=== PATIENT | male | born 1975 | race Caucasian/White ===

== ENCOUNTER 2018-04-15 12:24 | Emergency (ER) | payer SELFPAY ==
[2018-04-15 14:12] LABS: ADD MAN DIFF? NO; BASOPHILS % 0.5 % (0.0-2.0); EOSINOPHILS # 0.1 10^3/ul (0.0-0.5); EOSINOPHILS % 1.5 % (0.0-7.0); HEMATOCRIT 48.2 % (42.0-52.0); HEMOGLOBIN 16.6 g/dl (14.0-18.0); LYMPHOCYTES # 2.2 10^3/ul (0.8-2.9); LYMPHOCYTES % 36.3 % (15.0-51.0); MEAN CORPUSCULAR HGB CONC 34.4 g/dl (32.0-37.0); MEAN CORPUSCULAR VOLUME 90.1 fl (82.0-101.0); MEAN PLATELET VOLUME 9.8 fl (7.4-10.4); MONOCYTE # 0.5 10^3/ul (0.3-0.9); MONOCYTES % 7.6 % (0.0-11.0); NEUTROPHIL # 3.3 10^3/ul (1.6-7.5); NEUTROPHILS % 53.9 % (39.0-77.0); PLATELET COUNT 214 10^3/UL (140-415); RED BLOOD COUNT 5.35 10^6/ul (4.70-6.10)
[2018-04-15 14:21] LABS: ADD UMIC NO; UR ASCORBIC ACID NEGATIVE (NEGATIVE); UR BILIRUBIN (Dip) NEGATIVE (NEGATIVE); UR BLOOD (Dip) NEGATIVE (NEGATIVE); UR CLARITY CLEAR (CLEAR); UR COLOR STRAW (YELLOW); UR GLUCOSE (Dip) NEGATIVE (NEGATIVE); UR KETONES (Dip) NEGATIVE (NEGATIVE); UR LEUKOCYTE ESTERASE (Dip) NEGATIVE Leu/ul (NEGATIVE); UR NITRITE (Dip) NEGATIVE (NEGATIVE); UR SPECIFIC GRAVITY (Dip) 1.006 (1.003-1.030); UR TOTAL PROTEIN (Dip) NEGATIVE (NEGATIVE); UR UROBILINOGEN (Dip) NEGATIVE (NEGATIVE)
[2018-04-15 14:28] LABS: PHOSPHORUS 3.4 mg/dl (2.5-4.9)
[2018-04-15 14:30] LABS: ALANINE AMINOTRANSFERASE 25 IU/L (13-69); ALBUMIN 4.5 g/dl (3.3-4.9); ALBUMIN/GLOBULIN RATIO 1.36; ALKALINE PHOSPHATASE 62 IU/L (42-121); AMYLASE 110 U/L (11-123); ANION GAP 11 (5-13); ASPARTATE AMINO TRANSFERASE 26 IU/L (15-46); BILIRUBIN,INDIRECT 0.4 mg/dl (0-1.1); BILIRUBIN,TOTAL 0.4 mg/dl (0.2-1.3); BLOOD UREA NITROGEN 18 mg/dl (7-20); CALCIUM 9.6 mg/dl (8.4-10.2); CARBON DIOXIDE 30 mmol/L (21-31); CHLORIDE 102 mmol/L (97-110); CHOLESTEROL 209 mg/dl (100-200); CREATININE 1.05 mg/dl (0.61-1.24); Estimated GFR > 60 mL/min (>60); GLUCOSE 95 mg/dl (70-220); LACTATE DEHYDROGENASE 432 IU/L (313-618); LIPASE 100 U/L (23-300); POTASSIUM 4.2 mmol/L (3.5-5.1); SODIUM 143 mmol/L (135-144); TOTAL PROTEIN 7.8 g/dl (6.1-8.1)
[2018-04-15 14:31] LABS: INR 0.96; PROTIME 12.9 Sec (11.9-14.9)
[2018-04-15 14:32] LABS: PARTIAL THROMBOPLASTIN TIME 27.2 Sec (23.0-35.0)
[2018-04-15 14:41] LABS: TROPONIN-I < 0.012 ng/ml (0.000-0.120)
[2018-04-15 15:00] LABS: PROSTATE SPECIFIC ANTIGEN 0.7 ng/ml (0.0-4.0)
[2018-04-15] MEDS: IOHEXOL 300MG/ML 150 ML BTL (15:08)
[2018-04-15] MEDS: SOD CHLORIDE 0.9% 100 ML (15:08)
[2018-04-15] MEDS: KETOROLAC 30 MG INJ IV (15:57)
[2018-04-15] MEDS: TAMSULOSIN (SR) 0.4 MG CAP PO (15:57)
== END 2018-04-15 16:57 | disposition home or self-care (01) ==
LOC: FTE 12:24
DX: N20.0 Calculus of kidney (principal)
CPT/HCPCS: 71045; 74177; 80053; 81003; 82150; 82465; 83615; 83690; 84100; 84153; 84154; 84484; 85025; 85610; 85730; 87086; 93005; 96374; 99285-25